=== PATIENT | male | born 1980 | race Caucasian/White ===

== ENCOUNTER 2017-01-29 18:39 | Emergency (ER) | payer OTHER ==
--- NOTE | 2017-01-29 19:11 | EDM.PDOC ---
ED HPI GENERAL MEDICAL PROBLEM - General Chief Complaint: Upper Extremity Injury/Pain Stated Complaint: RIGHT HAND PAIN Time Seen by Provider: 01/29/17 19:10 Source of Information: Reports: Patient History Limitations: Reports: No Limitations - History of Present Illness INITIAL COMMENTS - FREE TEXT/NARRATIVE: History of present illness: [36-year-old male comes in complaining of acute trauma to right hand. Patient indicated that his hand was trapped between 2 pieces of oral field equipment while at work causing the hand to be twisted at an acute angle with a significant crushing type action.] Review of systems: As per history of present illness and below otherwise all systems reviewed and negative. Past medical history: As per history of present illness and as reviewed below otherwise noncontributory. Surgical history: As per history of present illness and as reviewed below otherwise noncontributory. Social history: No reported history of drug or alcohol abuse. Family history: As per history of present illness and as reviewed below otherwise noncontributory. Physical exam: HEENT: Atraumatic, normocephalic, pupils reactive, negative for conjunctival pallor or scleral icterus, mucous membranes moist, throat clear, neck supple, nontender, trachea midline. Lungs: Clear to auscultation, breath sounds equal bilaterally, chest nontender. Heart: S1S2, regular, negative for clicks, rubs, or JVD. Abdomen: Soft, nondistended, nontender. Negative for masses or hepatosplenomegaly. Negative for costovertebral tenderness. Pelvis: Stable nontender. Genitourinary: Deferred. Rectal: Deferred. Extremities: Right hand was significant amounts of swelling painful to touch and articulate peripheral pulses are palpable with good capillary refill negative for cords or calf pain. Neurovascular unremarkable. Neuro: Awake, alert, oriented. Cranial nerves II through XII unremarkable. Cerebellum unremarkable. Motor and sensory unremarkable throughout. Exam nonfocal. Diagnostics: [X-ray right hand] Therapeutics: [Toradol 60 mg] Impression: [Contusion] Plan: [facility]] Definitive disposition and diagnosis as appropriate pending reevaluation and review of above. Right Hand Pain Score (Numeric/FACES): 7 - Related Data Allergies Allergy/AdvReac Type Severity Reaction Status Date / Time acetaminophen [From Tavist] Allergy Rash Verified 01/29/17 18:55 clemastine [From Tavist] Allergy Rash Verified 01/29/17 18:55 diphenhydramine Allergy Rash Verified 01/29/17 18:55 [From Benadryl] pseudoephedrine [From Tavist] Allergy Rash Verified 01/29/17 18:55 Home Meds: Home Meds . [No Known Home Meds] 01/29/17 [History] Past Medical History HEENT History: Reports: Impaired Vision Other HEENT History: wears glasses Cardiovascular History: Reports: Angina, High Cholesterol Other Cardiovascular History: Pt states "My EKG shows that I had a heart attack and the stress test was undecisive" Gastrointestinal History: Reports: None - Past Surgical History HEENT Surgical History: Reports: Adenoidectomy, Tonsillectomy GI Surgical History: Reports: Hernia, Abdominal Musculoskeletal Surgical History: Reports: Other (See Below) Other Musculoskeletal Surgeries/Procedures:: right knee surgery Social & Family History - Family History Family Medical History: Noncontributory - Tobacco Use Smoking Status *Q: Never Smoker Second Hand Smoke Exposure: No - Caffeine Use Caffeine Use: Reports: Energy Drinks, Soda Caffeine Use Comment: 1 drink each/day - Recreational Drug Use Recreational Drug Use: No Review of Systems - Review of Systems Review Of Systems: See Below (See history of present illness) ED EXAM, GENERAL - Physical Exam Exam: See Below (See history of present illness) Course - Vital Signs Last Recorded V/S: Last Vital Signs Temp 36.3 C 01/29/17 18:50 Pulse 82 01/29/17 18:50 Resp 18 01/29/17 18:50 BP 136/91 H 01/29/17 18:50 Pulse Ox 96 01/29/17 18:50 - Orders/Labs/Meds Orders: Active Orders 24 hr Category Date Time Status Hand 2V Rt [CR] Stat Exams 01/29/17 19:00 Taken Meds: Medications Discontinued Medications Generic Name Dose Route Start Last Admin Trade Name Teri PRN Reason Stop Dose Admin Ketorolac Tromethamine 60 mg 01/29/17 20:03 01/29/17 20:07 Toradol IM 01/29/17 20:04 60 mg ONETIME ONE Administration Departure - Departure Time of Disposition: 20:11 Disposition: Home, Self-Care 01 Condition: Good Clinical Impression: Contusion of hand Clinical Impression: (Ruled Out): Contusion - Discharge Information Instructions: Crush Injury, Fingers or Toes, [id number], How to Use a Sling, [id number] Forms: ED Department Discharge Additional Instructions: The following information is given to patients seen in the emergency department who are being discharged to home. This information is to outline your options for follow-up care. We provide all patients seen in our emergency department with a follow-up referral. The need for follow-up, as well as the timing and circumstances, are variable depending upon the specifics of your emergency department visit. If you don't have a primary care physician on staff, we will provide you with a referral. We always advise you to contact your personal physician following an emergency department visit to inform them of the circumstance of the visit and for follow-up with them and/or the need for any referrals to a consulting specialist. The emergency department will also refer you to a specialist when appropriate. This referral assures that you have the opportunity for follow-up care with a specialist. All of these measure are taken in an effort to provide you with optimal care, which includes your follow-up. Under all circumstances we always encourage you to contact your private physician who remains a resource for coordinating your care. When calling for follow-up care, please make the office aware that this follow-up is from your recent emergency room visit. If for any reason you are refused follow-up, please contact the [facility] Emergency Department at and asked to speak to the emergency department charge nurse. Take medication as directed Follow-up with PCP in 1-2 days Return to ER as needed as discussed Follow-up with orthosis discussed [facility] Professional Building [address] [place] [address], [address] [place] [address] - My Orders Last 24 Hours: My Active Orders 01/29/17 19:00 Hand 2V Rt [CR] Stat - Assessment/Plan Last 24 Hours: My Active Orders 01/29/17 19:00 Hand 2V Rt [CR] Stat
[2017-01-29] MEDS ORDERED: Ketorolac 60 MG/2 ML SDV IM ONE (20:03)
[2017-01-29 20:57] VITALS: BP 123/74
--- NOTE | 2017-01-31 15:06 | CR ---
EXAM DATE: 01/29/17 PATIENT'S AGE: 36 Patient: CHRIS MEJIA Facility: [place], [place] Site . Site : 1980 Study: XRay Extremity Right hand [id number]/1/2017 7:24:29 PM Ordering Physician: Doctor Vaughn Final Report: INDICATION: injury/pain and swelling TECHNIQUE: Two views of the right hand COMPARISON: None FINDINGS: Bones: No fractures or bone lesions. Joint spaces: Unremarkable. Soft tissues: Soft tissue swelling about the right hand. IMPRESSION: Soft tissue swelling about the right hand. No acute bony abnormality. Dictated by Roman Lazo MD @ 01/29/2017 8:07:39 PM Dictated by: Roman Lazo MD @ 01/29/2017 20:07:45 (Electronic Signature) Report Signed by Proxy. [facility]
== END 2017-01-29 20:25 | disposition home or self-care (01) ==
LOC: MW.ED 18:39
DX: S60.221A Contusion of right hand, initial encounter (principal); E78.00 Pure hypercholesterolemia, unspecified; Z88.6 Allergy status to analgesic agent; Z88.8 Allergy status to other drugs, medicaments and biological substances; Z98.890 Other specified postprocedural states; W23.1XXA Caught, crushed, jammed, or pinched between stationary objects, initial encounter
CPT/HCPCS: 73120; 96372; 99283; A4566; J1885

== ENCOUNTER 2018-04-22 10:41 | Observation (INO) | payer OTHER ==
[2018-04-22] MEDS ORDERED: Aspirin 81 MG Tab.Chew PO ONE (10:50)
[2018-04-22] MEDS ORDERED: Sodium Chloride 0.9% 1,000 ML IV ONE (10:50)
[2018-04-22] MEDS ORDERED: Ondansetron 4 MG/2 ML SDV IVPUSH ONE (10:51)
--- NOTE | 2018-04-22 10:51 | EDM.PDOC ---
ED HPI GENERAL MEDICAL PROBLEM - General Chief Complaint: Chest Pain Stated Complaint: CHEST PAIN Time Seen by Provider: 04/22/18 10:46 Source of Information: Reports: Patient History Limitations: Reports: No Limitations - History of Present Illness INITIAL COMMENTS - FREE TEXT/NARRATIVE: HISTORY AND PHYSICAL: History of present illness: Patient is a 37-year-old male presents to the emergency room with left-sided chest pain that radiates into his left shoulder. He states he was up out of sleep with this pain which has not resolved. He states this pain does start in the left anterior chest and goes down the left arm. This is associated with nausea. He states that nothing makes the pain better or worse. He did not take any medications this morning such as aspirin or nitroglycerin. Concerned that this pain does feel similar to previous AZ. He reportedly had a AZ at age 33 [place]. This required him to stay in the hospital for 2 days it did not require further intervention other than observation. She states he had a stress test at that time. He has not seen the chief drafter since this time. Does not take any prescribed medications. Review of systems: As per history of present illness and below otherwise all systems reviewed and negative. Past medical history: As per history of present illness and as reviewed below otherwise noncontributory. Surgical history: As per history of present illness and as reviewed below otherwise noncontributory. Social history: No reported history of drug or alcohol abuse. Family history: As per history of present illness and as reviewed below otherwise noncontributory. Physical exam: General: Well-developed and well-nourished 37-year-old male. Alert and oriented. Nontoxic appearing and in no acute distress. HEENT: Atraumatic, normocephalic, pupils equal and reactive bilaterally, negative for conjunctival pallor or scleral icterus, mucous membranes moist, throat clear, neck supple, nontender, trachea midline. No drooling or trismus noted. No meningeal signs Lungs: Clear to auscultation, breath sounds equal bilaterally, chest nontender. Heart: S1S2, regular rate and rhythm without overt murmur Abdomen: Soft, nondistended, nontender. Negative for masses or hepatosplenomegaly. Negative for costovertebral tenderness. Pelvis: Stable nontender. Genitourinary: Deferred. Rectal: Deferred. Skin: Intact, warm, dry. No lesions or rashes noted. Extremities: Atraumatic, negative for cords or calf pain. Neurovascular unremarkable. Neuro: Awake, alert, oriented. Cranial nerves II through XII unremarkable. Cerebellum unremarkable. Motor and sensory unremarkable throughout. Exam nonfocal. Notes: Chest pain prior to the nitroglycerin was a 5 out of 10. He is currently a 1 out of 10. We'll give him some morphine Vital signs are stable. Pain is resolved. We'll admit patient for observation for rule out AZ. Patient is aware and agreeable to plan of care. Dr Chapman is agreeable to admitting this patient for observation. Diagnostics: CBC, CMP, troponin, EKG, one view chest Therapeutics: IV fluid, aspirin Impression: Chest pain rule out AZ Plan: Observation admission with telemetry Definitive disposition and diagnosis as appropriate pending reevaluation and review of above. Middle Chest Pain Score (Numeric/FACES): 8 - Related Data Allergies Allergy/AdvReac Type Severity Reaction Status Date / Time acetaminophen [From Tavist] Allergy Rash Verified 04/22/18 10:53 clemastine [From Tavist] Allergy Rash Verified 04/22/18 10:53 diphenhydramine Allergy Rash Verified 04/22/18 10:53 [From Benadryl] pseudoephedrine [From Tavist] Allergy Rash Verified 04/22/18 10:53 Home Meds: Home Meds . [No Known Home Meds] 01/29/17 [History] Past Medical History HEENT History: Reports: Impaired Vision Other HEENT History: wears glasses Cardiovascular History: Reports: Angina, High Cholesterol Other Cardiovascular History: Pt states "My EKG shows that I had a heart attack and the stress test was undecisive" Gastrointestinal History: Reports: None - Past Surgical History HEENT Surgical History: Reports: Adenoidectomy, Tonsillectomy GI Surgical History: Reports: Hernia, Abdominal Musculoskeletal Surgical History: Reports: Other (See Below) Other Musculoskeletal Surgeries/Procedures:: right knee surgery Social & Family History - Family History Family Medical History: Noncontributory - Caffeine Use Caffeine Use: Reports: Energy Drinks, Soda Caffeine Use Comment: 1 drink each/day ED ROS GENERAL - Review of Systems Review Of Systems: ROS reveals no pertinent complaints other than HPI. ED EXAM, GENERAL - Physical Exam Exam: See Below (See dictation) Course - Vital Signs Last Recorded V/S: Last Vital Signs Temp 98.0 F 04/22/18 10:46 Pulse 62 04/22/18 12:04 Resp 10 L 04/22/18 12:04 BP 102/69 04/22/18 12:04 Pulse Ox 97 04/22/18 12:04 - Orders/Labs/Meds Orders: Active Orders 24 hr Category Date Time Status Admission Status [Patient Status] [ADT] Stat ADT 04/22/18 12:38 Ordered Cardiac Monitoring [RC] . DIRECTED Care 04/22/18 12:38 Ordered EKG Documentation Completion [RC] STAT Care 04/22/18 10:45 Active Chest 1V Frontal [CR] Stat Exams 04/22/18 10:45 Taken D-DIMER QUANTITATIVE [COAG] Stat Lab 04/22/18 12:38 Ordered Labs: Laboratory Tests 04/22/18 04/22/18 Range/Units 10:57 10:57 WBC 7.32 (4.0-11.0) K/uL RBC 5.16 (4.50-5.90) M/uL Hgb 15.7 (13.0-17.0) g/dL Hct 45.5 (38.0-50.0) % MCV 88.2 (80.0-98.0) fL MCH 30.4 (27.0-32.0) pg MCHC 34.5 (31.0-37.0) g/dL RDW Std Deviation 40.5 (28.0-62.0) fl RDW Coeff of [place] 13 (11.0-15.0) % Plt Count 251 (150-400) K/uL MPV 10.80 (7.40-12.00) fL Neut % (Auto) 57.8 (48.0-80.0) % Lymph % (Auto) 33.5 (16.0-40.0) % [place] % (Auto) 7.8 (0.0-15.0) % Eos % (Auto) 0.8 (0.0-7.0) % Baso % (Auto) 0.1 (0.0-1.5) % Neut # (Auto) 4.2 (1.4-5.7) K/uL Lymph # (Auto) 2.5 H (0.6-2.4) K/uL [place] # (Auto) 0.6 (0.0-0.8) K/uL Eos # (Auto) 0.1 (0.0-0.7) K/uL Baso # (Auto) 0.0 (0.0-0.1) K/uL Nucleated RBC % 0.0 /100WBC Nucleated RBCs # 0 K/uL Sodium 140 (136-148) mmol/L Potassium 4.0 (3.5-5.1) mmol/L Chloride 106 (98-107) mmol/L Carbon Dioxide 26.8 (21.0-32.0) mmol/L BUN 14 (7.0-18.0) mg/dL Creatinine 1.0 (0.8-1.3) mg/dL Est Cr Clr Drug Dosing 113.19 mL/min Estimated GFR (MDRD) > 60.0 ml/min Glucose 119 H (74-106) mg/dL Calcium 9.2 (8.5-10.1) mg/dL Total Bilirubin 0.5 (0.2-1.0) mg/dL AST 17 (15-37) IU/L ALT 54 (14-63) IU/L Alkaline Phosphatase 85 (46-116) U/L Troponin I < 0.050 (0.000-0.056) ng/mL Total Protein 7.8 (6.4-8.2) g/dL Albumin 4.1 (3.4-5.0) g/dL Globulin 3.7 H (2.0-3.5) g/dL Albumin/Globulin Ratio 1.1 L (1.3-2.8) Meds: Medications Discontinued Medications Generic Name Dose Route Start Last Admin Trade Name Freq PRN Reason Stop Dose Admin Aspirin 324 mg 04/22/18 10:50 04/22/18 11:00 Aspirin PO 04/22/18 10:51 324 mg ONETIME ONE Administration Sodium Chloride 1,000 mls @ 999 mls/hr 04/22/18 10:50 04/22/18 11:00 Normal Saline IV 04/22/18 11:50 999 mls/hr STAT ONE Administration Morphine Sulfate 2 mg 04/22/18 11:27 04/22/18 11:35 Morphine IVPUSH 04/22/18 11:28 2 mg ONETIME ONE Administration Nitroglycerin 0.4 mg 04/22/18 10:50 04/22/18 11:09 Nitrostat SL 0.4 mg Q5M PRN Administration Chest Pain Ondansetron HCl 4 mg 04/22/18 10:51 04/22/18 10:59 Zofran IVPUSH 04/22/18 10:52 4 mg ONETIME ONE Administration Departure - Departure Time of Disposition: 12:41 Disposition: Refer to Observation Clinical Impression: Chest pain, rule out acute myocardial infarction Forms: ED Department Discharge - My Orders Last 24 Hours: My Active Orders 04/22/18 10:45 EKG Documentation Completion [RC] STAT Chest 1V Frontal [CR] Stat 04/22/18 12:38 Admission Status [Patient Status] [ADT] Stat Cardiac Monitoring [RC] . DIRECTED D-DIMER QUANTITATIVE [COAG] Stat - Assessment/Plan Last 24 Hours: My Active Orders 04/22/18 10:45 EKG Documentation Completion [RC] STAT Chest 1V Frontal [CR] Stat 04/22/18 12:38 Admission Status [Patient Status] [ADT] Stat Cardiac Monitoring [RC] . DIRECTED D-DIMER QUANTITATIVE [COAG] Stat
[2018-04-22] MEDS: Nitroglycerin 0.4 MG Tab.SL SL PRN ×3 (11:00→11:09)
[2018-04-22 11:20] LABS: CHLORIDE,CL 106 mmol/L (98-107); SODIUM,NA 140 mmol/L (136-148)
[2018-04-22] MEDS ORDERED: Morphine 2 MG/ML Syringe IVPUSH ONE (11:27)
[2018-04-22] MEDS ORDERED: Ondansetron 4 MG Tab.DIS PO PRN (13:48)
[2018-04-22] MEDS ORDERED: Sodium Chloride 0.9% 2.5 ML Syringe FLUSH PRN (13:48)
[2018-04-22] MEDS ORDERED: Sodium Chloride 0.9% 10 ML Syringe FLUSH PRN (13:48)
[2018-04-22] MEDS ORDERED: Morphine 2 MG/ML Syringe IVPUSH PRN (13:48)
[2018-04-22] MEDS ORDERED: Docusate Sodium 100 MG Cap PO PRN (13:48)
[2018-04-22] MEDS ORDERED: oxyCODONE 5 MG Tab PO PRN (13:48)
[2018-04-22] MEDS ORDERED: Temazepam 15 MG Cap PO PRN (13:48)
--- NOTE | 2018-04-22 13:57 | PCM.HP ---
H&P History of Present Illness - General Date of Service: 04/22/18 Admit Problem/Dx: Admission Diagnosis/Problem Admission Diagnosis/Problem Chest pain, rule out acute myocardial infarction Source of Information: Patient, Family, Old Records History Limitations: Reports: No Limitations - History of Present Illness Initial Comments - Free Text/Narative: The patient is an otherwise healthy 37-year-old gentleman who presented to the emergency department with complaint of chest pain. The patient reports that he had left sided, substernal chest pain which he described as pressure and heaviness. The patient also reports that he had some nausea with this and diaphoresis. Patient says that he is still having chest pain. This is only just noticeable. The patient has denied any radiation of the pain. He's had no specific aggravating or relieving factors and he does describe the pain starting while he was sleeping and it woke him up. The patient also reported that 6 years ago while in [place] on a job site. He had very severe crushing chest pain and had undergone cardiac testing and was found to have an inferior wall UT. The patient did not receive any stenting or interventional cardiology workup. The patient had been previously on antihypertensive but these have been decreased over time. The patient has denied any tobacco or alcohol use. He has no other complaints other than what is noted above. Onset of Symptoms: Reports: Sudden Duration of Symptoms: Reports: Hour(s):, Improving Location: Reports: Chest, Upper Extremity, Left Quality: Reports: Pressure, Same as Previous Episode Severity: Moderate Improves with: Reports: Medication Worsens with: Reports: None Associated Symptoms: Reports: Diaphoresis, Nausea/Vomiting Middle Chest Pain Score (Numeric/FACES): 1 - Related Data Allergies/Adverse Reactions: Allergies Allergy/AdvReac Type Severity Reaction Status Date / Time acetaminophen [From Tavist] Allergy Rash Verified 04/22/18 10:53 clemastine [From Tavist] Allergy Rash Verified 04/22/18 10:53 diphenhydramine Allergy Rash Verified 04/22/18 10:53 [From Benadryl] pseudoephedrine [From Tavist] Allergy Rash Verified 04/22/18 10:53 Home Medications: Home Meds . [No Known Home Meds] 01/29/17 [History] Past Medical History HEENT History: Reports: Impaired Vision Other HEENT History: wears glasses Cardiovascular History: Reports: Angina, High Cholesterol, Hypertension Other Cardiovascular History: Pt states "My EKG shows that I had a heart attack and the stress test was undecisive" Respiratory History: Reports: None Gastrointestinal History: Reports: None Genitourinary History: Reports: None Musculoskeletal History: Reports: None Neurological History: Reports: None Psychiatric History: Reports: None Endocrine/Metabolic History: Reports: None Hematologic History: Reports: None Immunologic History: Reports: None Oncologic (Cancer) History: Reports: None Dermatologic History: Reports: None - Infectious Disease History Infectious Disease History: Reports: None - Past Surgical History HEENT Surgical History: Reports: Adenoidectomy, Tonsillectomy GI Surgical History: Reports: Hernia, Abdominal Musculoskeletal Surgical History: Reports: Other (See Below) Other Musculoskeletal Surgeries/Procedures:: right knee surgery Social & Family History - Family History Family Medical History: Noncontributory - Tobacco Use Smoking Status *Q: Never Smoker Second Hand Smoke Exposure: No - Caffeine Use Caffeine Use: Reports: Coffee, Energy Drinks Caffeine Use Comment: 1 drink each/day - Recreational Drug Use Recreational Drug Use: No H&P Review of Systems - Review of Systems: Review Of Systems: See Below General: Reports: Weakness HEENT: Reports: No Symptoms Pulmonary: Reports: Shortness of Breath Cardiovascular: Reports: Chest Pain, Lightheadedness. Denies: Dyspnea on Exertion, Orthopnea Gastrointestinal: Reports: Nausea Genitourinary: Reports: No Symptoms Musculoskeletal: Reports: No Symptoms Skin: Reports: No Symptoms Psychiatric: Reports: No Symptoms Neurological: Reports: No Symptoms Hematologic/Lymphatic: Reports: No Symptoms Immunologic: Reports: No Symptoms Exam - Exam Exam: See Below - Vital Signs Vital Signs: Last Vital Signs Temp 36.1 C 04/22/18 13:03 Pulse 62 04/22/18 13:03 Resp 15 04/22/18 13:03 BP 116/78 04/22/18 13:03 Pulse Ox 97 04/22/18 13:03 Weight: 107.519 kg - Exam Quality Assessment: No: Supplemental Oxygen General: Alert, Oriented, Cooperative, Mild Distress HEENT: Conjunctiva Clear, EACs Clear, EOMI, Mucosa Moist & [place], Nares Patent, Pupils Equal Neck: Supple, Trachea Midline Lungs: Clear to Auscultation, Normal Respiratory Effort Cardiovascular: Regular Rate, Regular Rhythm GI/Abdominal Exam: Normal Bowel Sounds, Soft, Non-Tender, No Organomegaly, No Distention (Male) Exam: Deferred Rectal (Males) Exam: Deferred Back Exam: Normal Inspection, Full Range of Motion Extremities: Normal Inspection, Normal Range of Motion, Non-Tender, No Pedal Edema Skin: Warm, Dry, Intact Neurological: Cranial Nerves Intact, Reflexes Equal Bilateral Neuro Extensive - Mental Status: Alert, Oriented x3, Normal Mood/Affect Neuro Extensive - Motor, Sensory, Reflexes: CN II-XII Intact Psychiatric: Alert, Normal Affect, Normal Mood - Patient Data Lab Results Last 24 hrs: Laboratory Results - last 24 hr 04/22/18 04/22/18 04/22/18 Range/Units 10:57 10:57 10:57 WBC 7.32 (4.0-11.0) K/uL RBC 5.16 (4.50-5.90) M/uL Hgb 15.7 (13.0-17.0) g/dL Hct 45.5 (38.0-50.0) % MCV 88.2 (80.0-98.0) fL MCH 30.4 (27.0-32.0) pg MCHC 34.5 (31.0-37.0) g/dL RDW Std Deviation 40.5 (28.0-62.0) fl RDW Coeff of [place] 13 (11.0-15.0) % Plt Count 251 (150-400) K/uL MPV 10.80 (7.40-12.00) fL Neut % (Auto) 57.8 (48.0-80.0) % Lymph % (Auto) 33.5 (16.0-40.0) % [place] % (Auto) 7.8 (0.0-15.0) % Eos % (Auto) 0.8 (0.0-7.0) % Baso % (Auto) 0.1 (0.0-1.5) % Neut # (Auto) 4.2 (1.4-5.7) K/uL Lymph # (Auto) 2.5 H (0.6-2.4) K/uL [place] # (Auto) 0.6 (0.0-0.8) K/uL Eos # (Auto) 0.1 (0.0-0.7) K/uL Baso # (Auto) 0.0 (0.0-0.1) K/uL Nucleated RBC % 0.0 /100WBC Nucleated RBCs # 0 K/uL D-Dimer, Quantitative < 0.19 (0.0-0.52) mg/LFEU Sodium 140 (136-148) mmol/L Potassium 4.0 (3.5-5.1) mmol/L Chloride 106 (98-107) mmol/L Carbon Dioxide 26.8 (21.0-32.0) mmol/L BUN 14 (7.0-18.0) mg/dL Creatinine 1.0 (0.8-1.3) mg/dL Est Cr Clr Drug Dosing 113.19 mL/min Estimated GFR (MDRD) > 60.0 ml/min Glucose 119 H (74-106) mg/dL Calcium 9.2 (8.5-10.1) mg/dL Total Bilirubin 0.5 (0.2-1.0) mg/dL AST 17 (15-37) IU/L ALT 54 (14-63) IU/L Alkaline Phosphatase 85 (46-116) U/L Troponin I < 0.050 (0.000-0.056) ng/mL Total Protein 7.8 (6.4-8.2) g/dL Albumin 4.1 (3.4-5.0) g/dL Globulin 3.7 H (2.0-3.5) g/dL Albumin/Globulin Ratio 1.1 L (1.3-2.8) Result Diagrams: 04/22/18 10:57 04/22/18 10:57 *Q Meaningful Use (ADM) - VTE Risk Assess *Q Each Risk Factor Represents 1 Point: None Total Score 1 Point Risk Factors: 0 Each Risk Factor Represents 2 Points: None Total Score 2 Point Risk Factors: 0 Each Risk Factor Represents 3 Points: None Total Score 3 Point Risk Factors: 0 Each Risk Factor Represents 5 Points: None Total Score 5 Point Risk Factors: 0 Venous Thromboembolism Risk Factor Score *Q: 0 - Problem List (1) Chest pain, rule out acute myocardial infarction SNOMED Code(s): 56917372 ICD Code: R07.9 - CHEST PAIN, UNSPECIFIED Status: Acute Priority: High Current Visit: Yes (2) Dyslipidemia SNOMED Code(s): 330542168 ICD Code: E78.5 - HYPERLIPIDEMIA, UNSPECIFIED Status: Chronic Priority: Medium Current Visit: Yes (3) Coronary artery disease SNOMED Code(s): 31156099 ICD Code: I25.10 - ATHSCL HEART DISEASE OF [place] CORONARY ARTERY W/O ANG PCTRS Status: Chronic Priority: High Current Visit: Yes Qualifiers: Coronary Disease-Associated Artery/Lesion type: [place] artery [place] vs. transplanted heart: [place] heart Associated angina: with unspecified angina Qualified Code(s): I25.119 - Atherosclerotic heart disease of [place] coronary artery with unspecified angina pectoris (4) Abnormal EKG SNOMED Code(s): 851741045 ICD Code: R94.31 - ABNORMAL ELECTROCARDIOGRAM [ECG] [EKG] Status: Chronic Priority: High Current Visit: Yes (5) Hypertension SNOMED Code(s): 71635462 ICD Code: I10 - ESSENTIAL (PRIMARY) HYPERTENSION Status: Chronic Priority : Medium Current Visit: Yes Qualifiers: Hypertension type: essential hypertension Qualified Code(s): I10 - Essential (primary) hypertension (6) Obesity (BMI 30.0-34.9) SNOMED Code(s): 778493720 ICD Code: E66.9 - OBESITY, UNSPECIFIED Status: Chronic Priority: Medium Current Visit: Yes Problem List Initiated/Reviewed/Updated: Yes Orders Last 24hrs: Active Orders 24 hr Category Date Time Status Patient Status [ADT] Routine ADT 04/22/18 13:46 Active Ambulate [RC] PER UNIT ROUTINE Care 04/22/18 13:50 Active Cardiac Monitoring [RC] . DIRECTED Care 04/22/18 12:38 Inactive EKG Documentation Completion [RC] AM Care 04/22/18 13:48 Active EKG Documentation Completion [RC] STAT Care 04/22/18 10:45 Active Oxygen Therapy [RC] PRN Care 04/22/18 13:46 Active Oxygen Therapy [RC] PRN Care 04/22/18 13:48 Active Telemetry Monitoring [Cardiac Monitoring] [RC] . Care 04/22/18 12:54 Active DIRECTED Up ad Amanda [RC] ASDIRECTED Care 04/22/18 13:48 Active VTE/DVT Education [RC] PER UNIT ROUTINE Care 04/22/18 13:46 Active VTE/DVT Education [RC] PER UNIT ROUTINE Care 04/22/18 13:48 Active Vital Signs [RC] Q4H Care 04/22/18 13:48 Active Heart Healthy Diet [DIET] Diet 04/23/18 Breakfast Active Chest 1V Frontal [CR] Stat Exams 04/22/18 10:45 Taken CBC WITH AUTO DIFF [HEME] AM Lab 04/23/18 05:11 Ordered COMPREHENSIVE METABOLIC PN,CMP [CHEM] AM Lab 04/23/18 05:11 Ordered TROPONIN I [CHEM] Routine Lab 04/22/18 13:48 Ordered Docusate Sodium [Colace] Med 04/22/18 13:48 Ordered 100 mg PO BID PRN Morphine Med 04/22/18 13:48 Ordered 2 mg IVPUSH Q2H PRN Ondansetron [Zofran ODT] Med 04/22/18 13:48 Ordered 4 mg PO Q6H PRN Sodium Chloride 0.9% [Saline Flush] Med 04/22/18 13:48 Ordered 10 ml FLUSH ASDIRECTED PRN Sodium Chloride 0.9% [Saline Flush] Med 04/22/18 13:48 Ordered 2.5 ml FLUSH ASDIRECTED PRN Temazepam [Restoril] Med 04/22/18 13:48 Ordered 15 mg PO BEDTIME PRN oxyCODONE Med 04/22/18 13:48 Ordered 5 mg PO Q4H PRN Saline Lock Insert [OM.PC] Routine Oth 04/22/18 13:48 Ordered Resuscitation Status Routine Resus Stat 04/22/18 13:46 Ordered Medication Orders Docusate Sodium (Colace) 100 mg PO BID PRN PRN Reason: Constipation Morphine Sulfate (Morphine) 2 mg IVPUSH Q2H PRN PRN Reason: Pain (severe 7-10) Stop: 04/23/18 13:50 Ondansetron HCl (Zofran Odt) 4 mg PO Q6H PRN PRN Reason: nausea, able to take PO Oxycodone HCl (Oxycodone) 5 mg PO Q4H PRN PRN Reason: Pain (moderate 4-6) Sodium Chloride (Saline Flush) 10 ml FLUSH ASDIRECTED PRN PRN Reason: Keep Vein Open Sodium Chloride (Saline Flush) 2.5 ml FLUSH ASDIRECTED PRN PRN Reason: Keep Vein Open Temazepam (Restoril) 15 mg PO BEDTIME PRN PRN Reason: Sleep Assessment/Plan Comment:: The patient is a 37-year-old gentleman history of coronary artery disease without previous stenting. His EKG is consistent with his narrative. Because of this the patient will be admitted to observation for now. The patient does have a history of hypertension but he has not been on medications and his blood pressure will be monitored and if needed medications will be added. I've also ordered a lipid profile for the morning out of concern for the patient having lipid-induced coronary artery disease. The patient may need to be on a statin. The patient will also be kept on heart healthy diet. I will ordered serial troponins as well as a repeat EKG in the morning. The patient does further, have a history of both his parents dying at an early age secondary to heart disease. The patient does have a large number of risk factors and he should have a stress test as soon as possible. If the patient has had no changes and he has troponins and EKG does not show any changes he can be considered appropriate for discharge in the morning. I had a long discussion with the patient regarding this.
[2018-04-23 06:47] LABS: CHLORIDE,CL 107 mmol/L (98-107); SODIUM,NA 140 mmol/L (136-148)
--- NOTE | 2018-04-23 08:17 | PCM.DCSUM1 ---
Discharge Summary - Hospital Course Free Text/Narrative:: The patient is an otherwise healthy 37-year-old gentleman who presented to the emergency department yesterday with complaint of chest pain. The patient reports that he had left sided, substernal chest pain which he described as pressure and heaviness. The patient also reports that he had some nausea with this and diaphoresis. Patient says that he is still having chest pain. The patient was admitted to observation to exclude coronary artery disease. Diagnosis: Stroke: No - Discharge Data Discharge Date: 04/23/18 Discharge Disposition: Home, Self-Care 01 Condition: Good - Discharge Diagnosis/Problem(s) (1) Chest pain, rule out acute myocardial infarction SNOMED Code(s): 73164977 ICD Code: R07.9 - CHEST PAIN, UNSPECIFIED Status: Acute Priority: High (2) Dyslipidemia SNOMED Code(s): 473764072 ICD Code: E78.5 - HYPERLIPIDEMIA, UNSPECIFIED Status: Chronic Priority: Medium (3) Coronary artery disease SNOMED Code(s): 60623707 ICD Code: I25.10 - ATHSCL HEART DISEASE OF [place] CORONARY ARTERY W/O ANG PCTRS Status: Chronic Priority: High Qualifiers: Coronary Disease-Associated Artery/Lesion type: [place] artery [place] vs. transplanted heart: [place] heart Associated angina: with unspecified angina Qualified Code(s): I25.119 - Atherosclerotic heart disease of [place] coronary artery with unspecified angina pectoris (4) Abnormal EKG SNOMED Code(s): 452445247 ICD Code: R94.31 - ABNORMAL ELECTROCARDIOGRAM [ECG] [EKG] Status: Chronic Priority: High (5) Hypertension SNOMED Code(s): 39876935 ICD Code: I10 - ESSENTIAL (PRIMARY) HYPERTENSION Status: Chronic Priority : Medium Qualifiers: Hypertension type: essential hypertension Qualified Code(s): I10 - Essential (primary) hypertension (6) Obesity (BMI 30.0-34.9) SNOMED Code(s): 609226237 ICD Code: E66.9 - OBESITY, UNSPECIFIED Status: Chronic Priority: Medium - Patient Summary/Data Hospital Course: The patient is a 37-year-old gentleman history of coronary artery disease without previous stenting. The patient was admitted out of concern for troponin monitoring as well as telemetry and repeat EKGs. His EKG is consistent with his narrative. Because of this the patient will be admitted to observation for now. The patient does have a history of hypertension but he has not been on medications and his blood pressure will be monitored and if needed medications will be added. I've also ordered a lipid profile for the morning out of concern for the patient having lipid-induced coronary artery disease. The patient may need to be on a statin. The patient will also be kept on heart healthy diet. I will ordered serial troponins as well as a repeat EKG in the morning. The patient does further, have a history of both his parents dying at an early age secondary to heart disease. The patient does have a large number of risk factors and he should have a stress test as soon as possible. If the patient has had no changes and he has troponins and EKG does not show any changes he can be considered appropriate for discharge in the morning. I had a long discussion with the patient regarding this. By day of discharge the patient had 3 sets of troponins which were essentially undetectable. The patient's EKG did show evidence of an inferior infarct of indeterminate age however this was unchanged from the one yesterday. The patient has been recommended to follow up with cardiology for stress test secondary to his significant heart history. I recommended that the patient continue with daily aspirin for antiplatelet therapy. The patient is to have a diet as tolerated. He is also to have activity as tolerated. The patient has been hemodynamically stable and he is discharged from acute hospitalization with the recommendations listed above. - Patient Instructions Diet: Heart Healthy Diet Activity: As Tolerated Driving: May Drive Today Showering/Bathing: May Shower - Discharge Plan *PRESCRIPTION DRUG MONITORING PROGRAM REVIEWED*: Not Applicable *COPY OF PRESCRIPTION DRUG MONITORING REPORT IN PATIENT ELI: Not Applicable Home Medications: Home Meds . [No Known Home Meds] 01/29/17 [History] Patient Handouts: Cholesterol, [id number], Exercise Stress Test, [id number] , Nonspecific Chest Pain, [id number] - Discharge Summary/Plan Comment DC Time >30 min.: Yes - General Info Date of Service: 04/23/18 Admission Dx/Problem (Free Text: Admission Diagnosis/Problem Admission Diagnosis/Problem Chest pain, rule out acute myocardial infarction Functional Status: Reports: Pain Controlled - Review of Systems General: Reports: No Symptoms HEENT: Reports: No Symptoms Pulmonary: Reports: No Symptoms Cardiovascular: Reports: No Symptoms Gastrointestinal: Reports: No Symptoms Genitourinary: Reports: No Symptoms Musculoskeletal: Reports: No Symptoms Skin: Reports: No Symptoms Neurological: Reports: No Symptoms Psychiatric: Reports: No Symptoms - Patient Data Vitals - Most Recent: Last Vital Signs Temp 36.6 C 04/23/18 05:00 Pulse 62 04/23/18 05:00 Resp 19 04/23/18 05:00 BP 91/52 L 04/23/18 05:00 Pulse Ox 92 L 04/23/18 05:00 Weight - Most Recent: 107.519 kg I&O - Last 24 hours: Intake & Output 04/22/18 04/23/18 04/23/18 22:59 06:59 14:59 Intake Total 250 1070 Output Total 100 975 Balance 150 95 Lab Results - Last 24 hrs: Laboratory Results - last 24 hr 04/22/18 04/22/18 04/22/18 Range/Units 10:57 10:57 10:57 WBC 7.32 (4.0-11.0) K/uL RBC 5.16 (4.50-5.90) M/uL Hgb 15.7 (13.0-17.0) g/dL Hct 45.5 (38.0-50.0) % MCV 88.2 (80.0-98.0) fL MCH 30.4 (27.0-32.0) pg MCHC 34.5 (31.0-37.0) g/dL RDW Std Deviation 40.5 (28.0-62.0) fl RDW Coeff of [place] 13 (11.0-15.0) % Plt Count 251 (150-400) K/uL MPV 10.80 (7.40-12.00) fL Neut % (Auto) 57.8 (48.0-80.0) % Lymph % (Auto) 33.5 (16.0-40.0) % [place] % (Auto) 7.8 (0.0-15.0) % Eos % (Auto) 0.8 (0.0-7.0) % Baso % (Auto) 0.1 (0.0-1.5) % Neut # (Auto) 4.2 (1.4-5.7) K/uL Lymph # (Auto) 2.5 H (0.6-2.4) K/uL [place] # (Auto) 0.6 (0.0-0.8) K/uL Eos # (Auto) 0.1 (0.0-0.7) K/uL Baso # (Auto) 0.0 (0.0-0.1) K/uL Nucleated RBC % 0.0 /100WBC Nucleated RBCs # 0 K/uL D-Dimer, Quantitative < 0.19 (0.0-0.52) mg/LFEU Sodium 140 (136-148) mmol/L Potassium 4.0 (3.5-5.1) mmol/L Chloride 106 (98-107) mmol/L Carbon Dioxide 26.8 (21.0-32.0) mmol/L BUN 14 (7.0-18.0) mg/dL Creatinine 1.0 (0.8-1.3) mg/dL Est Cr Clr Drug Dosing 113.19 mL/min Estimated GFR (MDRD) > 60.0 ml/min Glucose 119 H (74-106) mg/dL Calcium 9.2 (8.5-10.1) mg/dL Total Bilirubin 0.5 (0.2-1.0) mg/dL AST 17 (15-37) IU/L ALT 54 (14-63) IU/L Alkaline Phosphatase 85 (46-116) U/L Troponin I < 0.050 (0.000-0.056) ng/mL Total Protein 7.8 (6.4-8.2) g/dL Albumin 4.1 (3.4-5.0) g/dL Globulin 3.7 H (2.0-3.5) g/dL Albumin/Globulin Ratio 1.1 L (1.3-2.8) Triglycerides (0-200) mg/dL Cholesterol (50-200) mg/dL LDL Cholesterol, Calc (60-180) mg/dL VLDL Cholesterol (5-55) mg/dL HDL Cholesterol (40-60) mg/dL Cholesterol/HDL Ratio (3.3-6.0) 04/22/18 04/22/18 04/23/18 Range/Units 16:55 22:32 06:15 WBC 6.51 (4.0-11.0) K/uL RBC 4.59 (4.50-5.90) M/uL Hgb 14.0 (13.0-17.0) g/dL Hct 40.7 (38.0-50.0) % MCV 88.7 (80.0-98.0) fL MCH 30.5 (27.0-32.0) pg MCHC 34.4 (31.0-37.0) g/dL RDW Std Deviation 40.4 (28.0-62.0) fl RDW Coeff of [place] 13 (11.0-15.0) % Plt Count 226 (150-400) K/uL MPV 10.60 (7.40-12.00) fL Neut % (Auto) 64.1 (48.0-80.0) % Lymph % (Auto) 28.0 (16.0-40.0) % [place] % (Auto) 5.7 (0.0-15.0) % Eos % (Auto) 2.0 (0.0-7.0) % Baso % (Auto) 0.2 (0.0-1.5) % Neut # (Auto) 4.2 (1.4-5.7) K/uL Lymph # (Auto) 1.8 (0.6-2.4) K/uL [place] # (Auto) 0.4 (0.0-0.8) K/uL Eos # (Auto) 0.1 (0.0-0.7) K/uL Baso # (Auto) 0.0 (0.0-0.1) K/uL Nucleated RBC % 0.0 /100WBC Nucleated RBCs # 0 K/uL D-Dimer, Quantitative (0.0-0.52) mg/LFEU Sodium (136-148) mmol/L Potassium (3.5-5.1) mmol/L Chloride (98-107) mmol/L Carbon Dioxide (21.0-32.0) mmol/L BUN (7.0-18.0) mg/dL Creatinine (0.8-1.3) mg/dL Est Cr Clr Drug Dosing mL/min Estimated GFR (MDRD) ml/min Glucose (74-106) mg/dL Calcium (8.5-10.1) mg/dL Total Bilirubin (0.2-1.0) mg/dL AST (15-37) IU/L ALT (14-63) IU/L Alkaline Phosphatase (46-116) U/L Troponin I < 0.050 < 0.050 (0.000-0.056) ng/mL Total Protein (6.4-8.2) g/dL Albumin (3.4-5.0) g/dL Globulin (2.0-3.5) g/dL Albumin/Globulin Ratio (1.3-2.8) Triglycerides (0-200) mg/dL Cholesterol (50-200) mg/dL LDL Cholesterol, Calc (60-180) mg/dL VLDL Cholesterol (5-55) mg/dL HDL Cholesterol (40-60) mg/dL Cholesterol/HDL Ratio (3.3-6.0) 04/23/18 04/23/18 Range/Units 06:15 06:15 WBC (4.0-11.0) K/uL RBC (4.50-5.90) M/uL Hgb (13.0-17.0) g/dL Hct (38.0-50.0) % MCV (80.0-98.0) fL MCH (27.0-32.0) pg MCHC (31.0-37.0) g/dL RDW Std Deviation (28.0-62.0) fl RDW Coeff of [place] (11.0-15.0) % Plt Count (150-400) K/uL MPV (7.40-12.00) fL Neut % (Auto) (48.0-80.0) % Lymph % (Auto) (16.0-40.0) % [place] % (Auto) (0.0-15.0) % Eos % (Auto) (0.0-7.0) % Baso % (Auto) (0.0-1.5) % Neut # (Auto) (1.4-5.7) K/uL Lymph # (Auto) (0.6-2.4) K/uL [place] # (Auto) (0.0-0.8) K/uL Eos # (Auto) (0.0-0.7) K/uL Baso # (Auto) (0.0-0.1) K/uL Nucleated RBC % /100WBC Nucleated RBCs # K/uL D-Dimer, Quantitative (0.0-0.52) mg/LFEU Sodium 140 (136-148) mmol/L Potassium 4.2 (3.5-5.1) mmol/L Chloride 107 (98-107) mmol/L Carbon Dioxide 29.0 (21.0-32.0) mmol/L BUN 12 (7.0-18.0) mg/dL Creatinine 1.0 (0.8-1.3) mg/dL Est Cr Clr Drug Dosing 113.19 mL/min Estimated GFR (MDRD) > 60.0 ml/min Glucose 131 H (74-106) mg/dL Calcium 8.7 (8.5-10.1) mg/dL Total Bilirubin 0.5 (0.2-1.0) mg/dL AST 18 (15-37) IU/L ALT 50 (14-63) IU/L Alkaline Phosphatase 71 (46-116) U/L Troponin I (0.000-0.056) ng/mL Total Protein 6.5 (6.4-8.2) g/dL Albumin 3.4 (3.4-5.0) g/dL Globulin 3.1 (2.0-3.5) g/dL Albumin/Globulin Ratio 1.1 L (1.3-2.8) Triglycerides 196 (0-200) mg/dL Cholesterol 181 (50-200) mg/dL LDL Cholesterol, Calc 109 (60-180) mg/dL VLDL Cholesterol 39 (5-55) mg/dL HDL Cholesterol 33 L (40-60) mg/dL Cholesterol/HDL Ratio 5.5 (3.3-6.0) Med Orders - Current: Current Medications Docusate Sodium (Colace) 100 mg PO BID PRN PRN Reason: Constipation Morphine Sulfate (Morphine) 2 mg IVPUSH Q2H PRN PRN Reason: Pain (severe 7-10) Stop: 04/23/18 13:50 Ondansetron HCl (Zofran Odt) 4 mg PO Q6H PRN PRN Reason: nausea, able to take PO Oxycodone HCl (Oxycodone) 5 mg PO Q4H PRN PRN Reason: Pain (moderate 4-6) Last Admin: 04/22/18 17:42 Dose: 5 mg Sodium Chloride (Saline Flush) 10 ml FLUSH ASDIRECTED PRN PRN Reason: Keep Vein Open Sodium Chloride (Saline Flush) 2.5 ml FLUSH ASDIRECTED PRN PRN Reason: Keep Vein Open Temazepam (Restoril) 15 mg PO BEDTIME PRN PRN Reason: Sleep Discontinued Medications Aspirin (Aspirin) 324 mg PO ONETIME ONE Stop: 04/22/18 10:51 Last Admin: 04/22/18 11:00 Dose: 324 mg Sodium Chloride (Normal Saline) 1,000 mls @ 999 mls/hr IV STAT ONE Stop: 04/22/18 11:50 Last Admin: 04/22/18 11:00 Dose: 999 mls/hr Morphine Sulfate (Morphine) 2 mg IVPUSH ONETIME ONE Stop: 04/22/18 11:28 Last Admin: 04/22/18 11:35 Dose: 2 mg Nitroglycerin (Nitrostat) 0.4 mg SL Q5M PRN PRN Reason: Chest Pain Last Admin: 04/22/18 11:09 Dose: 0.4 mg Ondansetron HCl (Zofran) 4 mg IVPUSH ONETIME ONE Stop: 04/22/18 10:52 Last Admin: 04/22/18 10:59 Dose: 4 mg - Exam Quality Assessment: Denies: Supplemental Oxygen General: Reports: Alert, Oriented, Cooperative, No Acute Distress HEENT: Reports: Pupils Equal, Pupils Reactive. Denies: Scleral Icterus Neck: Reports: Supple, Trachea Midline, No Thyromegaly. Denies: Lymphadenopathy Lungs: Reports: Clear to Auscultation, Normal Respiratory Effort Cardiovascular: Reports: Regular Rate, Regular Rhythm GI/Abdominal Exam: Normal Bowel Sounds, Soft, Non-Tender, No Distention (Male) Exam: Deferred Rectal (Males) Exam: Deferred Back Exam: Reports: Normal Inspection, Full Range of Motion Extremities: Normal Inspection, Normal Range of Motion, Non-Tender, No Pedal Edema Skin: Reports: Warm, Dry, Intact Neurological: Reports: No New Focal Deficit, Normal Gait, Normal Speech Psy/Mental Status: Reports: Alert, Normal Affect, Normal Mood
[2018-04-23 09:07] VITALS: BP 97/54
--- NOTE | 2018-04-24 14:11 | CR ---
EXAM DATE: 04/22/18 PATIENT'S AGE: 37 Patient: CHRIS MEJIA Facility: [place], [place] Site . Site : 1980 Study: XRay Chest [id number]/22/2018 11:46:16 AM Ordering Physician: Doctor Vaughn Final Report: INDICATION: chest pain COMPARISON: None. FINDINGS: Single portable AP view of the chest demonstrates hypoventilatory changes. There is no airspace consolidation, pneumothorax or effusion. Cardiomediastinal silhouette is unremarkable for an AP view. There are no acute osseous findings. IMPRESSION: Hypoventilatory changes. No acute findings. Consider dedicated PA and lateral views, as clinically warranted. Dictated by Seb Barney MD @ 04/22/2018 12:16:07 PM Dictated by: Seb Barney MD @ 04/22/2018 12:16:13 (Electronic Signature) Report Signed by Proxy. [email or web address]
== END 2018-04-23 09:00 | disposition home or self-care (01) ==
LOC: MW.ED 10:41 → MW.MS 12:38 → MW.ED 12:50
PROVIDERS: ADMIT Internal Medicine; ATTEND Internal Medicine
DX: I25.119 Atherosclerotic heart disease of native coronary artery with unspecified angina pectoris (principal); I10 Essential (primary) hypertension; E66.9 Obesity, unspecified; E78.00 Pure hypercholesterolemia, unspecified; Z95.5 Presence of coronary angioplasty implant and graft; Z88.6 Allergy status to analgesic agent; Z88.8 Allergy status to other drugs, medicaments and biological substances
CPT/HCPCS: 36415; 71045; 80053; 80061; 84484; 85025; 85379; 93005; 96361; 96374; 96375; 99285; A9270; J2270; J2405; J7040; G0378

== ENCOUNTER 2018-08-27 04:11 | Emergency (ER) | payer OTHER ==
[2018-08-27 04:30] VITALS: BP 110/56
[2018-08-27] MEDS ORDERED: Ketorolac 60 MG/2 ML SDV IM ONE (04:30)
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
--- NOTE | 2018-08-27 05:15 | CR ---
INDICATION: Pain, no trauma TECHNIQUE: Lumbar spine 3 view. COMPARISON: None FINDINGS: Bones: Straightening of the lumbar spine with normal alignment. No fractures or significant bone lesions. Joints: Disc spaces and facets are unremarkable. Soft tissues: Unremarkable. IMPRESSION: Straightening of the lumbar spine. Dictated by Jose Miguel Banuelos MD @ 08/27/2018 5:14:55 AM Dictated by: Jose Miguel Banuelos MD @ 08/27/2018 05:15:01 (Electronically Signed)
== END 2018-08-27 05:34 | disposition home or self-care (01) ==
LOC: MW.ED 04:11
DX: M54.5 Low back pain (principal); G89.29 Other chronic pain; I10 Essential (primary) hypertension; Z88.6 Allergy status to analgesic agent; Z88.8 Allergy status to other drugs, medicaments and biological substances
CPT/HCPCS: 72100; 96372; 99283; J1885